=== PATIENT | female | born 1965 | race Caucasian/White ===

== ENCOUNTER 2016-09-06 16:05 | Inpatient (IN) | payer OTHER, MEDICAID ==
[~2016-09-06] VITALS: Ht 167.6 cm; Wt 77.1 kg
[~2016-09-06 16:05] MED LIST: ALMACONE PO; BACLOFEN10 MG PO; CALCIUM500 MG PO; COL100 PO; FLUOXETINE20 M3 PO; LAC PO; LACOO; MAC100 PO; MILK OF MA400 MG/5 M PO; MIRALAX17 GM/Dose PO; MP PO; PRI20 PO; ROBL PO; SEROQUEL100 MG PO; SIMVASTATIN20 M1 PO; TRAMADOL HCL50 MG PO
[2016-09-06 17:33] LABS: CALCIUM 8.7 mg/dL (8.5-10.1); CARBON DIOXIDE 29.1 mmol/L (21-32); CHLORIDE SERUM 107 mmol/L (98-107); CREATININE SERUM 0.8 mg/dL (0.6-1.0); GFR1 > 60 mL/min; GLUCOSE SERUM 103 mg/dL (74-106); POTASSIUM SERUM 4.1 mmol/L (3.5-5.1); SODIUM SERUM 142 mmol/L (136-145)
[2016-09-06 17:35] LABS: BASOPHIL % 0.6 % (0-2)
[2016-09-06 17:38] LABS: ALBUMIN 3.4 g/dL (3.4-5.0); ALKALINE PHOSPHATASE 206 U/L (46-116); ALT/SGPT 84 U/L (14-59); AST/SGOT 58 U/L (15-37); CHOLESTEROL 115 mg/dL (<200); HDL CHOLESTEROL 34 mg/dL (40-60); TOTAL PROTEIN, SERUM 7.1 g/dL (6.4-8.2)
[2016-09-06 17:41] LABS: PLATELET COUNT 164 x10^3mcL (130-400)
[2016-09-06 18:40] LABS: CHOLESTEROL/HDL RATIO 3.3
[2016-09-06 18:46] LABS: T3 TOTAL 0.86 ng/mL
[2016-09-06 18:47] LABS: FREE T4 1.07 ng/dL (0.76-1.46); FREE THYROXINE INDEX 2.4 ug/dL (1.4-4.5)
[2016-09-06] MEDS ORDERED: TOPCARE TU PO (18:53)
[2016-09-06] MEDS ORDERED: AMOXICILLIN/CLA1 TA1 PO (18:53)
[2016-09-06] MEDS ORDERED: AMITIZA24 MC1 PO (18:54)
[2016-09-06] MEDS ORDERED: VENTOLIN H0.09 MG/A1 IH (18:54)
[2016-09-06] MEDS ORDERED: MIRALAX17 GM/Dose PO (18:56)
[2016-09-06 20:04] VITALS: BP 109/68
[2016-09-06 21:48] VITALS: BP 109/68
[2016-09-07 06:29] LABS: CALCIUM 8.3 mg/dL (8.5-10.1); CARBON DIOXIDE 27.1 mmol/L (21-32); CHLORIDE SERUM 111 mmol/L (98-107); CREATININE SERUM 0.8 mg/dL (0.6-1.0); GFR1 > 60 mL/min; GLUCOSE SERUM 82 mg/dL (74-106); MAGNESIUM 1.9 mg/dL (1.8-2.4); PHOSPHOROUS 3.9 mg/dL (2.5-4.9); POTASSIUM SERUM 4.2 mmol/L (3.5-5.1); SODIUM SERUM 143 mmol/L (136-145)
[2016-09-07 06:40] VITALS: BP 112/62
[2016-09-07 06:42] LABS: BASOPHIL % 0.6 % (0-2); PLATELET COUNT 143 x10^3mcL (130-400); RED CELL DISTRIBUTION WIDTH 13.2 % (11.5-14.5)
[2016-09-07 09:13] VITALS: BP 135/64
[2016-09-07 14:21] VITALS: BP 132/72
[2016-09-07 18:14] VITALS: BP 124/67
[2016-09-07 21:36] VITALS: BP 118/79
[2016-09-08 05:48] VITALS: BP 124/59
[2016-09-08 06:55] LABS: BASOPHIL % 0.4 % (0-2); PLATELET COUNT 174 x10^3mcL (130-400); RED CELL DISTRIBUTION WIDTH 13.6 % (11.5-14.5)
[2016-09-08 07:14] LABS: CALCIUM 8.5 mg/dL (8.5-10.1); CARBON DIOXIDE 24.7 mmol/L (21-32); CHLORIDE SERUM 111 mmol/L (98-107); CREATININE SERUM 0.9 mg/dL (0.6-1.0); GFR1 > 60 mL/min; GLUCOSE SERUM 74 mg/dL (74-106); POTASSIUM SERUM 4.1 mmol/L (3.5-5.1); SODIUM SERUM 145 mmol/L (136-145)
[2016-09-08 10:36] VITALS: BP 100/56
[2016-09-08 14:58] VITALS: BP 114/77
[2016-09-08 18:32] VITALS: BP 101/61
[2016-09-08 22:30] VITALS: BP 163/82
[2016-09-08 23:21] VITALS: BP 96/63
[2016-09-09 05:38] VITALS: BP 95/61
[2016-09-09 06:42] LABS: BASOPHIL % 0.4 % (0-2); PLATELET COUNT 163 x10^3mcL (130-400); RED CELL DISTRIBUTION WIDTH 13.2 % (11.5-14.5)
[2016-09-09 06:54] LABS: CALCIUM 8.8 mg/dL (8.5-10.1); CARBON DIOXIDE 26.1 mmol/L (21-32); CHLORIDE SERUM 111 mmol/L (98-107); CREATININE SERUM 0.9 mg/dL (0.6-1.0); GFR1 > 60 mL/min; GLUCOSE SERUM 85 mg/dL (74-106); POTASSIUM SERUM 4.3 mmol/L (3.5-5.1); SODIUM SERUM 145 mmol/L (136-145)
[2016-09-09 09:05] VITALS: BP 140/59
[2016-09-09 12:20] VITALS: BP 133/86
[2016-09-09 17:25] VITALS: BP 135/85
[2016-09-09 19:45] VITALS: BP 127/80
[2016-09-09 21:10] VITALS: Ht 167.6 cm; Wt 77.1 kg
[2016-09-09 22:02] VITALS: BP 121/67
[2016-09-10 06:12] VITALS: BP 136/68
[2016-09-10 06:34] LABS: CALCIUM 8.8 mg/dL (8.5-10.1); CARBON DIOXIDE 26.6 mmol/L (21-32); CHLORIDE SERUM 107 mmol/L (98-107); CREATININE SERUM 0.9 mg/dL (0.6-1.0); GFR1 > 60 mL/min; GLUCOSE SERUM 73 mg/dL (74-106); MAGNESIUM 1.8 mg/dL (1.8-2.4); PHOSPHOROUS 4.1 mg/dL (2.5-4.9); POTASSIUM SERUM 4.5 mmol/L (3.5-5.1); SODIUM SERUM 142 mmol/L (136-145)
[2016-09-10 07:24] LABS: BASOPHIL % 0.3 % (0-2); PLATELET COUNT 199 x10^3mcL (130-400); RED CELL DISTRIBUTION WIDTH 13.3 % (11.5-14.5)
[2016-09-10 07:45] VITALS: BP 143/78
[2016-09-10] MEDS ORDERED: LEVAQUIN750 MG PO (14:56)
[2016-09-10] MEDS ORDERED: LAC PO (14:57)
[2016-09-10] MEDS ORDERED: CLEOCIN HCL300 MG PO (14:57)
[2016-09-10] MEDS ORDERED: PULMICORT0.25 MG/2 NEB (15:06)
[2016-09-10 15:30] VITALS: BP 143/78
[2016-09-10] MEDS ORDERED: SYMBICORT1 AE2 INH (15:34)
== END 2016-09-10 18:08 | DRG 177 ==
LOC: ED 16:05 → DU 17:55 → MU 09-09 20:07
PROVIDERS: Emergency Medicine; Family Medicine; ADMIT Family Medicine
DX: J69.0 Pneumonitis due to inhalation of food and vomit (principal); R53.2 Functional quadriplegia; G80.8 Other cerebral palsy; D64.9 Anemia, unspecified; F32.9 Major depressive disorder, single episode, unspecified; F79 Unspecified intellectual disabilities; I10 Essential (primary) hypertension; E78.5 Hyperlipidemia, unspecified; R00.0 Tachycardia, unspecified; M21.41 Flat foot [pes planus] (acquired), right foot; M24.674 Ankylosis, right foot; Z74.01 Bed confinement status; Z99.3 Dependence on wheelchair; Z68.27 Body mass index [BMI] 27.0-27.9, adult
CPT/HCPCS: 83880; 84439; 87804; J1885; J2270; J2543; J3490; J7030; J7613; J7620; Q0092

== ENCOUNTER → 2017-01-01 | Outpatient (CLI) | payer OTHER, MEDICAID ==
[~2017-01-01] MED LIST changes: +AMITIZA24 MC1 PO; +AMOXICILLIN/CLA1 TA1 PO; +CLEOCIN HCL300 MG PO; +LEVAQUIN750 MG PO; +PULMICORT0.25 MG/2 NEB; +SYMBICORT1 AE2 INH; +TOPCARE TU PO; +VENTOLIN H0.09 MG/A1 IH
== END | disposition home or self-care (01) ==
LOC: US 09:30
PROC: BW4GZZZ Ultrasonography of Pelvic Region (ICD-10-PCS; principal; 2017-01-01)
DX: R10.2 Pelvic and perineal pain (principal)

== ENCOUNTER 2018-08-04 10:16 | Emergency (ER) | payer OTHER, MEDICAID ==
[~2018-08-04] VITALS: Ht 160 cm; Wt 85.7 kg
[2018-08-04 10:18] VITALS: Ht 160 cm; Wt 85.7 kg
[2018-08-04 12:56] LABS: BASOPHIL % 0.7 % (0-2); PLATELET COUNT 198 x10^3mcL (130-400); RED CELL DISTRIBUTION WIDTH 13.7 % (11.5-14.5)
[2018-08-04 13:17] LABS: ALKALINE PHOSPHATASE 119 U/L (46-116); ALT/SGPT 40 U/L (14-59); AMYLASE 42 U/L (25-115); AST/SGOT 38 U/L (15-37); BILIRUBIN TOTAL 0.14 mg/dL (0.20-1.00); CALCIUM 9.3 mg/dL (8.5-10.1); CARBON DIOXIDE 27.3 mmol/L (21-32); CHLORIDE SERUM 104 mmol/L (98-107); CHOLESTEROL 174 mg/dL (<200); CREATININE SERUM 0.9 mg/dL (0.6-1.0); GFR1 > 60 mL/min; HDL CHOLESTEROL 41 mg/dL (40-60); LIPASE 3 IU/L (73-393); POTASSIUM SERUM 4.5 mmol/L (3.5-5.1); SODIUM SERUM 141 mmol/L (136-145); T4(THYROXINE) 4.9 ug/dL (4.7-13.3)
[2018-08-04 13:29] LABS: GLUCOSE SERUM 84 mg/dL (74-106); TOTAL PROTEIN, SERUM 7.8 g/dL (6.4-8.2)
[2018-08-04 13:30] LABS: ALBUMIN 3.3 g/dL (3.4-5.0)
[2018-08-04 14:01] LABS: microscopic required? YES; urine erythrocyte 1+ (NEGATIVE)
[2018-08-04 14:25] LABS: AMPHETAMINE QUAL UR NONE DETECTED (See below)
[2018-08-04 15:53] VITALS: BP 134/87
== END 2018-08-04 15:53 | disposition home or self-care (01) ==
LOC: ED 10:16
PROVIDERS: Emergency Medicine
DX: E88.09 Other disorders of plasma-protein metabolism, not elsewhere classified (principal); R60.1 Generalized edema; H10.9 Unspecified conjunctivitis; F79 Unspecified intellectual disabilities; G80.9 Cerebral palsy, unspecified; F32.9 Major depressive disorder, single episode, unspecified; H91.93 Unspecified hearing loss, bilateral; E66.9 Obesity, unspecified; F63.9 Impulse disorder, unspecified; Z88.8 Allergy status to other drugs, medicaments and biological substances; Z68.33 Body mass index [BMI] 33.0-33.9, adult
CPT/HCPCS: 36415; 83880; Q0092

== ENCOUNTER → 2019-01-25 | Outpatient (CLI) | payer OTHER, MEDICAID | END | disposition home or self-care (01) | LOC: US 01-21 10:00 → MA 01-21 10:30 → US 09:46 | PROC: BW4GZZZ Ultrasonography of Pelvic Region (ICD-10-PCS; principal; 2019-01-25) | PROC: BH02ZZZ Plain Radiography of Bilateral Breasts (ICD-10-PCS; 2019-01-25) | DX: Z12.31 Encounter for screening mammogram for malignant neoplasm of breast (principal); R10.2 Pelvic and perineal pain | CPT/HCPCS: 77067 ==

== ENCOUNTER → 2019-03-03 | Outpatient (CLI) | payer OTHER, MEDICAID | END | disposition home or self-care (01) | LOC: MA 09:56 | DX: R92.8 Other abnormal and inconclusive findings on diagnostic imaging of breast (principal) | CPT/HCPCS: 77065 ==

== ENCOUNTER → 2020-03-28 | Outpatient (CLI) | payer OTHER, MEDICAID | END | disposition home or self-care (01) | LOC: US 10:13 | PROC: BW4GZZZ Ultrasonography of Pelvic Region (ICD-10-PCS; principal; 2020-03-28) | DX: R10.2 Pelvic and perineal pain (principal) ==

== ENCOUNTER → 2020-05-31 | Outpatient (CLI) | payer OTHER, MEDICAID | END | disposition home or self-care (01) | LOC: MA 11:00 | PROC: BH02ZZZ Plain Radiography of Bilateral Breasts (ICD-10-PCS; principal; 2020-05-31) | DX: Z12.31 Encounter for screening mammogram for malignant neoplasm of breast (principal) | CPT/HCPCS: 77067 ==

== ENCOUNTER → 2020-08-17 | Outpatient (CLI) | payer OTHER, MEDICAID | END | disposition home or self-care (01) | LOC: MA 08:51 | PROC: BH01ZZZ Plain Radiography of Left Breast (ICD-10-PCS; principal; 2020-08-17) | DX: R92.8 Other abnormal and inconclusive findings on diagnostic imaging of breast (principal) | CPT/HCPCS: 77065 ==